=== PATIENT | female | born 1965 | race Caucasian/White ===

== ENCOUNTER 2016-09-17 22:15 | Emergency (ER) | payer MEDICAID ==
[~2016-09-17] VITALS: Ht 154.9 cm; Wt 50.0 kg
[~2016-09-17 22:15] MED LIST: METF500T4 PO; SIMV5TAB53 PO
[2016-09-18] MEDS ORDERED: ONDANSETRON HCL 4MG/2ML VIAL IV STA (00:03)
[2016-09-18] MEDS ORDERED: SODIUM CHLORIDE 0.9% 1,000 ML IV ONE (00:03)
[2016-09-18] MEDS ORDERED: MORPHINE SULFATE 4 MG/ML CPJ (NOT FOR IM USE) IV STA (00:03)
[2016-09-18] MEDS ORDERED: CEFTRIAXONE 1 G PREMIX 50 ML IV ONE (00:15)
[2016-09-18 00:35] LABS: BASOPHILS % 0.8 % (0.0-2.0); EOSINOPHILS % 2.7 % (0.0-5.0); HEMATOCRIT. 34.9 % (36.0-48.0); HEMOGLOBIN. 11.6 g/dL (12.0-16.0); LYMPHOCYTES % 25.5 % (20.0-50.0); MEAN CORPUSCULAR HEMOGLOBIN 30.2 pg (28.0-32.0); MEAN CORPUSCULAR HGB CONC 33.2 g/dL (31.0-37.0); MEAN PLATELET VOLUME 8.4 fl (7.4-10.4); MONOCYTES % 9.5 % (2.0-8.0); NEUTROPHILS % 61.5 % (40.0-76.0); PLATELET 254 x1000/uL (130-400); RED BLOOD CELL COUNT 3.83 mill/uL (4.2-5.4); RED CELL DISTRIBUTION WIDTH 12.8 % (11.6-14.6)
[2016-09-18 00:42] LABS: INR 0.9; PROTHROMBIN TIME 9.4 sec
[2016-09-18 00:57] LABS: ALANINE AMINOTRANSFERASE 29 IU/L (13-61); ALBUMIN 2.8 g/dL (3.4-5.0); ANION GAP 14; CALCIUM 8.1 mg/dL (8.5-10.1); CARBON DIOXIDE 26 mEq/L (21-32); CHLORIDE 96 mEq/L (98-107); ETHANOL BLOOD < 10 mg/dL; INDEX HEMOLYSI 3 (1-3); INDEX ICTERIC 1 (1-4); INDEX LIPEMIC 1 (1-3); LIPASE 290 IU/L (73-393); NT PRO B-TYPE NATRIURETIC PEP 93 pg/mL (5-125); TROPONIN I < 0.02 ng/mL (0.00-0.04); UREA NITROGEN BLOOD 16 mg/dL (7-21); eGFR > 60 mL/min (>60)
[2016-09-18 01:02] LABS: HCG SCREEN NEGATIVE
[2016-09-18] MEDS ORDERED: INSULIN REGULAR (HUMULIN R) 300UNITS/3ML SUBCUT ONE (02:00)
[2016-09-18 02:06] LABS: CLARITY URINE CLOUDY (CLEAR); COLOR URINE YELLOW (YELLOW); GLUCOSE URINE 3+ (NEGATIVE); KETONES URINE TRACE (NEGATIVE); LEUKOCYTE ESTERASE URINE 1+ (NEGATIVE); NITRITE URINE POSITIVE (NEGATIVE); OCCULT BLOOD URINE 2+ (NEGATIVE); PROTEIN URINE NEGATIVE (NEGATIVE); UROBILINOGEN URINE 0.2 E.U./dL (0.2-1.0)
[2016-09-18 02:20] VITALS: BP 125/87
[2016-09-18 02:57] LABS: SQUAMOUS EPITHELIAL CELL URINE FEW /lpf (RARE/1+)
[2016-09-18 02:58] LABS: WBC URINE 50-100 /hpf (0-2)
[2016-09-18 02:59] LABS: BACTERIA URINE 3+
== END 2016-09-18 03:15 | disposition home or self-care (01) ==
LOC: ER 22:15
DX: N30.90 Cystitis, unspecified without hematuria (principal); E11.65 Type 2 diabetes mellitus with hyperglycemia; R10.9 Unspecified abdominal pain; M79.604 Pain in right leg; E78.00 Pure hypercholesterolemia, unspecified; K21.9 Gastro-esophageal reflux disease without esophagitis; M48.06 Spinal stenosis, lumbar region; Z79.4 Long term (current) use of insulin; Z90.710 Acquired absence of both cervix and uterus; Z90.49 Acquired absence of other specified parts of digestive tract
CPT/HCPCS: 36415; 74176; 80053; 81001; 82962; 83605; 83690; 83880; 84484; 84703; 85025; 85610; 87040; 87077; 87086; 87186; 96365; 96372; 96375; 99285; G0482; J0696; J1815; J2270; J2405; J7030; Z7610

== ENCOUNTER 2018-07-13 13:36 | Emergency (ER) | payer MEDICARE, BC ==
[~2018-07-13] VITALS: Ht 160 cm; Wt 55.0 kg
[~2018-07-13 13:36] MED LIST changes: +ASPI-864 PO; -METF500T4 PO; -SIMV5TAB53 PO
[2018-07-13] MEDS ORDERED: SODIUM CHLORIDE 0.9% 1,000 ML IV ONE (15:46)
[2018-07-13] MEDS ORDERED: ONDANSETRON HCL 4MG/2ML INJ IV STA (15:46)
[2018-07-13] MEDS ORDERED: MORPHINE SULFATE 4 MG/ML CPJ (NOT FOR IM USE) IV STA (15:46)
[2018-07-13] MEDS ORDERED: MAGNESIUM/ALUMINUM HYDROXIDE/SIMETHICONE 30ML UDC PO STA (15:46)
[2018-07-13 16:10] LABS: CLARITY URINE CLEAR (CLEAR); COLOR URINE YELLOW (YELLOW); KETONES URINE NEGATIVE (NEGATIVE); LEUKOCYTE ESTERASE URINE NEGATIVE (NEGATIVE); NITRITE URINE NEGATIVE (NEGATIVE); OCCULT BLOOD URINE 1+ (NEGATIVE); PH URINE 8.5 (4.5-8.0); PROTEIN URINE 2+ (NEGATIVE); UROBILINOGEN URINE 0.2 E.U./dL (0.2-1.0)
[2018-07-13 16:50] LABS: EOSINOPHILS % 0.9 % (0.0-5.0); HEMATOCRIT. 32.2 % (36.0-48.0); HEMOGLOBIN. 10.5 g/dL (12.0-16.0); LYMPHOCYTES % 19.6 % (20.0-50.0); MEAN CORPUSCULAR HEMOGLOBIN 29.1 pg (28.0-32.0); MEAN CORPUSCULAR VOLUME 89.5 fL (81.0-99.0); MEAN PLATELET VOLUME 6.5 fl (7.4-10.4); MONOCYTES % 6.3 % (2.0-8.0); NEUTROPHILS % 72.2 % (40.0-76.0); PLATELET 458 x1000/uL (130-400); RED CELL DISTRIBUTION WIDTH 14.7 % (11.6-14.6)
[2018-07-13 16:53] LABS: CHLORIDE 99 mEq/L (98-107)
[2018-07-13 17:40] VITALS: BP 137/67
== END 2018-07-13 18:48 | disposition home or self-care (01) ==
LOC: ER 13:36
DX: R10.9 Unspecified abdominal pain (principal); N39.0 Urinary tract infection, site not specified; E11.9 Type 2 diabetes mellitus without complications; I10 Essential (primary) hypertension; Z88.6 Allergy status to analgesic agent; Z79.82 Long term (current) use of aspirin; Z90.49 Acquired absence of other specified parts of digestive tract
CPT/HCPCS: 36415; 74176; 80053; 81003; 83690; 85025; 85610; 93005; 96361; 96374; 96375; 99284; J2270; J2405; J7030

== ENCOUNTER 2018-07-28 13:16 | Emergency (ER) | payer BC, MEDICARE, MEDICAID ==
[~2018-07-28] VITALS: Ht 162.6 cm; Wt 65.0 kg
[2018-07-28] MEDS ORDERED: MORPHINE SULFATE 4 MG/ML CPJ (NOT FOR IM USE) IV STA (14:46)
[2018-07-28] MEDS ORDERED: ONDANSETRON HCL 4MG/2ML INJ IV STA (14:46)
[2018-07-28] MEDS ORDERED: SODIUM CHLORIDE 0.9% 1,000 ML IV ONE (14:46)
[2018-07-28 15:47] LABS: BASOPHILS % 0.6 % (0.0-2.0); EOSINOPHILS % 1.4 % (0.0-5.0); HEMATOCRIT. 29.7 % (36.0-48.0); HEMOGLOBIN. 10.1 g/dL (12.0-16.0); LYMPHOCYTES % 25.9 % (20.0-50.0); MEAN CORPUSCULAR HEMOGLOBIN 30.2 pg (28.0-32.0); MEAN CORPUSCULAR VOLUME 89.2 fL (81.0-99.0); MEAN PLATELET VOLUME 7.4 fl (7.4-10.4); MONOCYTES % 5.8 % (2.0-8.0); NEUTROPHILS % 66.3 % (40.0-76.0); PLATELET 338 x1000/uL (130-400); RED BLOOD CELL COUNT 3.33 mill/uL (4.2-5.4); RED CELL DISTRIBUTION WIDTH 14.9 % (11.6-14.6)
[2018-07-28 15:52] LABS: CHLORIDE 103 mEq/L (98-107)
[2018-07-28 15:56] LABS: ETHANOL BLOOD < 10 mg/dL; PARTIAL THROMBOPLASTIN TIME 25.8 sec (23.4-31.0); PROTHROMBIN TIME 9.6 sec (9.1-11.1)
[2018-07-28] MEDS ORDERED: CEFTRIAXONE 1 G PREMIX 50 ML IV ONE (16:00)
[2018-07-28 16:02] LABS: CLARITY URINE CLEAR (CLEAR); COLOR URINE YELLOW (YELLOW); KETONES URINE NEGATIVE (NEGATIVE); LEUKOCYTE ESTERASE URINE TRACE (NEGATIVE); NITRITE URINE NEGATIVE (NEGATIVE); OCCULT BLOOD URINE 1+ (NEGATIVE); PH URINE 6.5 (4.5-8.0); PROTEIN URINE 1+ (NEGATIVE); SPECIFIC GRAVITY URINE 1.013 (1.005-1.030); UROBILINOGEN URINE 0.2 E.U./dL (0.2-1.0)
[2018-07-28 16:12] LABS: *AMPHETAMINES SCREEN URINE NEGATIVE (NEGATIVE); *BARBITURATES SCREEN URINE NEGATIVE (NEGATIVE); *BENZODIAZEPINES SCREEN URINE NEGATIVE (NEGATIVE); *COCAINE SCREEN URINE NEGATIVE (NEGATIVE)
[2018-07-28 16:13] LABS: CANNABINOID URINE SCREEN NEGATIVE (NEGATIVE); METHADONE URINE SCREEN NEGATIVE (NEGATIVE); OPIATES URINE SCREEN NEGATIVE (NEGATIVE); PHENCYCLIDINE URINE SCREEN NEGATIVE (NEGATIVE)
[2018-07-28 21:34] VITALS: BP 145/80
== END 2018-07-28 21:47 | disposition home or self-care (01) ==
LOC: ER 13:52 → CANBEDREQ 21:46 → ER 21:47
DX: N30.90 Cystitis, unspecified without hematuria (principal); R10.30 Lower abdominal pain, unspecified; D64.9 Anemia, unspecified; R53.1 Weakness; E11.9 Type 2 diabetes mellitus without complications; Z90.49 Acquired absence of other specified parts of digestive tract; Z88.6 Allergy status to analgesic agent; Z79.82 Long term (current) use of aspirin
CPT/HCPCS: 36415; 74176; 80053; 80305; 80320; 81003; 83605; 83690; 83880; 84484; 85025; 85610; 85730; 87040; 87086; 93005; 96361; 96365; 96375; 99284; J0696; J2270; J2405; J7030; G0480

== ENCOUNTER 2018-11-16 14:58 | Emergency (ER) | payer BC, MEDICARE, MEDICAID ==
[~2018-11-16] VITALS: Ht 160 cm; Wt 46.0 kg
[2018-11-16] MEDS ORDERED: MORPHINE SULFATE 4 MG/ML CPJ (NOT FOR IM USE) IV STA (16:54)
[2018-11-16] MEDS ORDERED: ONDANSETRON HCL 4MG/2ML INJ IV STA (16:54)
[2018-11-16 17:00] VITALS: BP 113/66
[2018-11-16] MEDS ORDERED: SODIUM CHLORIDE 0.9% 1000ML BAG (SEPSIS BOLUS) IV ONE (17:00)
[2018-11-16] MEDS ORDERED: VANCOMYCIN 1 G PREMIX 200 ML IV ONE (17:00)
[2018-11-16] MEDS ORDERED: PIPERACILLIN/TAZ 3.375G PREMIX 50 ML IV ONE (17:00)
[2018-11-16 17:55] LABS: BASOPHILS % 0.5 % (0.0-2.0); HEMATOCRIT. 31.6 % (36.0-48.0); HEMOGLOBIN. 10.5 g/dL (12.0-16.0); LYMPHOCYTES % 15.2 % (20.0-50.0); MEAN CORPUSCULAR HEMOGLOBIN 30.1 pg (28.0-32.0); MEAN CORPUSCULAR VOLUME 90.3 fL (81.0-99.0); MEAN PLATELET VOLUME 8.2 fl (7.4-10.4); MONOCYTES % 8.1 % (2.0-8.0); NEUTROPHILS % 74.2 % (40.0-76.0); PLATELET 428 x1000/uL (130-400); RED CELL DISTRIBUTION WIDTH 13.5 % (11.6-14.6)
[2018-11-16] MEDS ORDERED: INSULIN REGULAR (HUMULIN R) 300UNITS/3ML SUBCUT ONE (18:00)
[2018-11-16 18:01] LABS: CHLORIDE 102 mEq/L (98-107)
[2018-11-16 18:04] LABS: INR 0.9; PARTIAL THROMBOPLASTIN TIME 27.6 sec (23.4-31.0); PROTHROMBIN TIME 9.5 sec (9.6-11.0)
== END 2018-11-16 20:07 | disposition short-term general hospital (02) ==
LOC: ER 14:58 → CANBEDREQ 18:13 → ER 20:07
DX: E11.621 Type 2 diabetes mellitus with foot ulcer (principal); L97.411 Non-pressure chronic ulcer of right heel and midfoot limited to breakdown of skin; L03.115 Cellulitis of right lower limb; Z88.6 Allergy status to analgesic agent; Z79.82 Long term (current) use of aspirin
CPT/HCPCS: 36415; 73630; 80053; 82962; 83605; 84145; 85025; 85610; 85730; 87040; 93005; 96365; 96366; 96368; 96372; 96375; 99285; J1815; J2270; J2405; J2543; J3370; J7030

== ENCOUNTER 2021-08-21 10:29 | Emergency (ER) | payer BC, MEDICAID ==
[~2021-08-21] VITALS: Ht 154.9 cm; Wt 55.0 kg
[2021-08-21 10:40] VITALS: BP 185/92
[2021-08-21] MEDS ORDERED: ACETAMINOPHEN 325MG TABLET PO ONE (11:00)
[2021-08-21 11:05] LABS: BASOPHILS % 0.8 % (0.0-2.0); EOSINOPHILS % 5.8 % (0.0-5.0); HEMATOCRIT. 36.2 % (36.0-48.0); HEMOGLOBIN. 11.9 g/dL (12.0-16.0); LYMPHOCYTES % 29.4 % (20.0-50.0); MEAN CORPUSCULAR VOLUME 91.2 fL (81.0-99.0); MEAN PLATELET VOLUME 8.3 fl (7.4-10.4); MONOCYTES % 5.8 % (2.0-8.0); NEUTROPHILS % 58.2 % (40.0-76.0); PLATELET 272 x1000/uL (130-400); RED BLOOD CELL COUNT 3.96 mill/uL (4.2-5.4)
[2021-08-21 11:13] LABS: CHLORIDE 103 mEq/L (98-107)
[2021-08-21 11:28] LABS: HCG SCREEN INDETERMINATE
[2021-08-21 11:39] LABS: CLARITY URINE CLEAR (CLEAR); COLOR URINE YELLOW (YELLOW); KETONES URINE NEGATIVE (NEGATIVE); LEUKOCYTE ESTERASE URINE TRACE (NEGATIVE); NITRITE URINE POSITIVE (NEGATIVE); OCCULT BLOOD URINE TRACE (NEGATIVE); PROTEIN URINE 3+ (NEGATIVE); SPECIFIC GRAVITY URINE 1.009 (1.005-1.030); UROBILINOGEN URINE 0.2 E.U./dL (0.2-1.0)
[2021-08-21] MEDS ORDERED: SODIUM CHLORIDE 0.9% 1,000 ML IV ONE ×2 (11:45→13:30)
[2021-08-21] MEDS ORDERED: CEFP200T13 MT (14:17)
== END 2021-08-21 14:24 | disposition home or self-care (01) ==
LOC: ER 10:39
DX: N39.0 Urinary tract infection, site not specified (principal); E11.65 Type 2 diabetes mellitus with hyperglycemia; I10 Essential (primary) hypertension; Z87.19 Personal history of other diseases of the digestive system; Z90.49 Acquired absence of other specified parts of digestive tract; Z98.890 Other specified postprocedural states; Z90.710 Acquired absence of both cervix and uterus
CPT/HCPCS: 36415; 80053; 81003; 82010; 82962; 83690; 84702; 84703; 85025; 99283; J7030

== ENCOUNTER 2024-03-05 12:20 | Emergency (ER) | payer MEDICAID ==
[~2024-03-05] VITALS: Ht 162.6 cm; Wt 69.0 kg
[~2024-03-05 12:20] MED LIST changes: +CEFP200T13 MT
[2024-03-05 12:21] VITALS: O2SAT 97
[2024-03-05 12:55] LABS: BASOPHILS % 0.6 % (0.0-2.0); EOSINOPHILS % 6.7 % (0.0-5.0); HEMATOCRIT. 35.1 % (36.0-48.0); HEMOGLOBIN. 11.2 g/dL (12.0-16.0); LYMPHOCYTES % 32.6 % (20.0-50.0); MEAN CORPUSCULAR HEMOGLOBIN 29.7 pg (28.0-32.0); MEAN CORPUSCULAR VOLUME 92.7 fL (81.0-99.0); MEAN PLATELET VOLUME 8.6 fl (7.4-10.4); NEUTROPHILS % 54.1 % (40.0-76.0); PLATELET 241 x1000/uL (130-400); RED BLOOD CELL COUNT 3.78 mill/uL (4.2-5.4); RED CELL DISTRIBUTION WIDTH 15.2 % (11.6-14.6); WHITE BLOOD COUNT 7.4 x1000/uL (4.5-11.0)
[2024-03-05 13:35] LABS: CHLORIDE 109 mEq/L (98-107); POTASSIUM 4.2 mEq/L (3.5-5.1); SODIUM 139 mEq/L (136-145)
[2024-03-05 13:36] LABS: CARBON DIOXIDE 24 mEq/L (21-32)
[2024-03-05 13:41] LABS: CREATININE 1.8 mg/dL (0.6-1.0); GLUCOSE 194 mg/dL (70-105)
[2024-03-05 13:42] LABS: UREA NITROGEN BLOOD 27 mg/dL (9-23)
[2024-03-05 13:47] LABS: TROPONIN I HIGH SENSITIVITY < 4 ng/L (3.0-34)
[2024-03-05 13:48] LABS: ETHANOL BLOOD < 10 mg/dL (<10)
[2024-03-05 15:37] VITALS: BP 155/70; PULSE 65; RESP 12; TEMP 36.89184; O2SAT 97
== END 2024-03-05 15:37 | disposition home or self-care (01) ==
LOC: ER 12:20
DX: E11.649 Type 2 diabetes mellitus with hypoglycemia without coma (principal); Z88.6 Allergy status to analgesic agent; Z90.49 Acquired absence of other specified parts of digestive tract; Z90.710 Acquired absence of both cervix and uterus; Z98.890 Other specified postprocedural states
CPT/HCPCS: 36415; 71045; 80048; 80320; 84484; 85025; 93005; 99285; G0480

== ENCOUNTER 2024-11-14 15:11 | Emergency (ER) | payer MEDICARE, BC ==
[~2024-11-14] VITALS: Ht 154.9 cm; Wt 54.0 kg
[2024-11-14 15:29] VITALS: O2SAT 100
[2024-11-14 15:58] LABS: CLARITY URINE CLEAR (CLEAR); COLOR URINE YELLOW (YELLOW); GLUCOSE URINE TRACE (NEGATIVE); KETONES URINE NEGATIVE (NEGATIVE); LEUKOCYTE ESTERASE URINE NEGATIVE (NEGATIVE); NITRITE URINE NEGATIVE (NEGATIVE); OCCULT BLOOD URINE NEGATIVE (NEGATIVE); PH URINE 7.0 (4.5-8.0); PROTEIN URINE 3+ (NEGATIVE); SPECIFIC GRAVITY URINE 1.008 (1.005-1.030); UROBILINOGEN URINE 0.2 E.U./dL (0.2-1.0)
[2024-11-14 16:06] LABS: BASOPHILS % 1.0 % (0.0-2.0); EOSINOPHILS % 10.2 % (0.0-5.0); HEMATOCRIT. 31.6 % (36.0-48.0); HEMOGLOBIN. 10.6 g/dL (12.0-16.0); LYMPHOCYTES % 22.3 % (20.0-50.0); MEAN PLATELET VOLUME 7.9 fl (7.4-10.4); MONOCYTES % 5.6 % (2.0-8.0); NEUTROPHILS % 60.9 % (40.0-76.0); PLATELET 290 x1000/uL (130-400); RED BLOOD CELL COUNT 3.55 mill/uL (4.2-5.4); RED CELL DISTRIBUTION WIDTH 18.8 % (11.6-14.6)
[2024-11-14 16:20] LABS: UREA NITROGEN BLOOD 51.0 mg/dL (9-23)
[2024-11-14 16:21] LABS: CREATININE 3.1 mg/dL (0.6-1.0)
[2024-11-14 16:58] LABS: BACTERIA URINE NONE SEEN; RBC URINE NONE SEEN /hpf (0-2); SQUAMOUS EPITHELIAL CELL URINE NONE SEEN /lpf (RARE/1+); WBC URINE NONE SEEN /hpf (0-2); YEAST URINE NONE SEEN
[2024-11-14] MEDS ORDERED: DAPTOMYCIN 350 MG in SODIUM CHLORIDE 0.9% 50 ML IV SCH (17:45)
[2024-11-14] MEDS: CALCIUM GLUCONATE 100MG/ML 10ML VIAL IV ONE (18:46)
[2024-11-14] MEDS: DEXTROSE 50% WATER 50ML SYRINGE IV ONE (18:59)
[2024-11-14] MEDS: INSULIN REGULAR (HUMULIN R) 1000UNITS/10ML VIAL IV ONE (19:01)
[2024-11-14] MEDS: DAPTOMYCIN 350 MG in SODIUM CHLORIDE 0.9% 50 ML IV SCH (19:12)
[2024-11-14 19:34] VITALS: TEMP 36.6
[2024-11-14 20:24] LABS: CREATININE 2.7 mg/dL (0.6-1.0); UREA NITROGEN BLOOD 50.0 mg/dL (9-23)
[2024-11-14] MEDS: DEXTROSE 50% WATER 50ML SYRINGE IV SCH (20:55)
[2024-11-14 21:01] VITALS: BP 168/72; PULSE 76; RESP 13; O2SAT 100
== END 2024-11-14 21:09 | disposition left against medical advice (07) ==
LOC: ER 15:11 → CANBEDREQ 21:27
DX: I80.9 Phlebitis and thrombophlebitis of unspecified site (principal); E11.649 Type 2 diabetes mellitus with hypoglycemia without coma; E87.5 Hyperkalemia; I10 Essential (primary) hypertension; Z90.710 Acquired absence of both cervix and uterus; Z90.49 Acquired absence of other specified parts of digestive tract; Z88.6 Allergy status to analgesic agent
CPT/HCPCS: 80048; 81003; 82962; 85025; 36415; 93971; 93005; 96365; 96375; 96376; 99285; J0610; J0878; J1815; A4606